=== PATIENT | male | born 1960 | race Caucasian/White ===

== ENCOUNTER 2016-08-11 20:43 | Emergency (ER) | payer OTHER ==
[2016-08-11] MEDS ORDERED: NS 0.9% 1000 ML* 1,000 ML IV ONE (22:47)
[2016-08-11 22:55] LABS: Urine Bilirubin Negative (Negative); Urine Glucose 1+(50 mg/dL) (Negative); Urine Nitrite Negative (Negative)
[2016-08-11 23:11] LABS: Hematocrit 42 % (42-52); Mean Corpuscular HGB Conc 33 g/dl (31-36); Mean Corpuscular Hemoglobin 30 pg (27-31); Mean Corpuscular Volume 89 fL (80-94); Mean Platelet Volume 9 um3 (7.4-10.4); Red Blood Count 4.74 10^6/ul (4.0-5.4); Red Cell Distribution Width 12 % (10.5-15); White Blood Count 20.4 10^3/ul (3.5-10.8)
[2016-08-11 23:27] LABS: Albumin 3.9 g/dL (3.2-5.2); BUN/Creatinine Ratio 22.7 (8-20); Calcium 9.2 mg/dL (8.6-10.3); EGFR African American 138.1 (>60); EGFR Non-African American 107.3 (>60); Globulin 3.3 g/dL (2-4); Potassium 3.9 mmol/L (3.5-5.0); Total Bilirubin 0.5 mg/dL (0.2-1.0); Total Protein 7.2 g/dL (6.4-8.9)
[2016-08-11 23:29] LABS: Troponin I 0.02 ng/mL (<0.04)
[2016-08-12] MEDS ORDERED: Iodixanol* (CONTRAST) 320 MG/ML 100 ML SDV IV ONE (00:58)
[2016-08-12] MEDS ORDERED: Levofloxacin 500 MG IVPREMIX(* 500 MG/100 ML BAG IVPB ONE (02:09)
[2016-08-12] MEDS ORDERED: metroNIDAZOLE IV 500 MG/100ML* 500 MG/100 ML BAG IVPB ONE (02:10)
--- NOTE | 2016-08-12 04:33 | ED ---
Marleen Mitchell Rebecca, scribed for Allegra Henryuel on 08/11/16 at 2239 . Abdominal Pain/Male - HPI Summary HPI Summary: Pt is a 56 y/o M who presents to ED c/o abd pain. Pain began suddenly 2 days ago and has been constant since onset. Pain is discrete to the suprapubic region and has been constant since onset. Pain is currently ranked 6/10 and characterized as sharp. Sx aggravated and alleviated by nothing. Additionally c/ o constipatoin, dysuria, increased urinary frequency and mild CP. Denies hematuria, blood in stool, N/V/D. No PMHx CAD. SHx former smoker (quit 15 years ago). - History of Current Complaint Chief Complaint: EDAbdPain Stated Complaint: ABD PAIN Time Seen by Provider: 08/11/16 22:33 Hx Obtained From: Patient Onset/Duration: Sudden Onset, Lasting Days - 2 days, Still Present Timing: Constant Severity Initially: Moderate Severity Currently: Moderate Pain Intensity: 6 Pain Scale Used: 0-10 Numeric Location: Suprapubic Radiates: No Character: Sharp Aggravating Factor(s): Nothing Alleviating Factor(s): Nothing Associated Signs And Symptoms: Positive: Chest Pain - mild, Constipation, Urinary Symptoms - dysuria, increased urinary frequency; Denies hematuria. Negative: Blood in Stool, Nausea, Vomiting, Diarrhea - Allergies/Home Medications Allergies/Adverse Reactions: Allergies Allergy/AdvReac Type Severity Reaction Status Date / Time [place] Blue FCF AdvReac WHOLE BODY Verified 01/28/15 06:39 [From Advil PM Caplets] DISCOMFORT CI Pigment Blue 63 AdvReac WHOLE BODY Verified 01/28/15 06:39 [From Advil PM Caplets] DISCOMFORT Diphenhydramine AdvReac WHOLE BODY Verified 01/28/15 06:39 [From Advil PM Caplets] DISCOMFORT Ibuprofen AdvReac WHOLE BODY Verified 01/28/15 06:39 [From Advil PM Caplets] DISCOMFORT Naproxen AdvReac GI Upset Verified 01/28/15 06:39 SOME FOOD ALLERGIES Allergy Unknown Uncoded 01/28/15 06:39 Reaction Details PMH/Surg Hx/FS Hx/Imm Hx Endocrine/Hematology History: Reports: Hx Diabetes Cardiovascular History: Reports: Hx Angina Denies: Hx Coronary Artery Disease, Hx Hypercholesterolemia, Hx Hypertension , Hx Myocardial Infarction, Hx Pacemaker/ICD, Hx Valvular Heart Disease Respiratory History: Reports: Hx Sleep Apnea - ?- HAS NOT BEEN DIAGNOSED WITH Denies: Hx Asthma, Hx Chronic Obstructive Pulmonary Disease (COPD) GI History: Reports: Hx Gastroesophageal Reflux Disease - ON OCCASION Comment Only: Hx Irritable Bowel - POSSIBLY-BOWEL PROBLEMS WITH EATING JUNK FOODS History: Denies: Hx Dialysis, Hx Renal Disease Musculoskeletal History: Reports: Hx Arthritis - KNEES, HANDS, ELBOWS Sensory History: Reports: Hx Contacts or Glasses - GLASSES Denies: Hx Hearing Aid Opthamlomology History: Reports: Hx Contacts or Glasses - GLASSES Neurological History: Reports: Hx Headaches - 2-3 TIMES PER YEAR Psychiatric History: Reports: Hx Anxiety - NO MEDICATION FOR, Hx Depression - NO MEDICATION FOR Denies: Hx Panic Disorder - Surgical History Surgery Procedure, Year, and Place: APPENDIX Hx Anesthesia Reactions: No Infectious Disease History: Denies: Traveled Outside the [place] in Last 30 Days - Social History Alcohol Use: Occasionally Substance Use Type: Reports: None Substance Use Comment - Amount & Last Used: HISTORY OF USE 20 YEARS YEARS AGO Smoking Status (MU): Former Smoker Type: Cigarettes Amount Used/How Often: 1 1/2 PPD Length of Time of Smoking/Using Tobacco: 20 Have You Smoked in the Last Year: No Review of Systems Positive: Chest Pain - mild Positive: Abdominal Pain. Negative: Vomiting, Diarrhea, Nausea Positive: dysuria, frequency - increased urinary frequency, other - constipation ; Denies blood in stool. Negative: hematuria All Other Systems Reviewed And Are Negative: Yes Physical Exam Triage Information Reviewed: Yes Vital Signs On Initial Exam: Initial Vitals Temp Pulse Resp BP Pulse Ox 97.8 F 104 20 150/89 95 08/11/16 20:47 08/11/16 20:47 08/11/16 20:47 08/11/16 20:47 08/11/16 20:47 Vital Signs Reviewed: Yes Appearance: Positive: Well-Appearing, No Pain Distress Skin: Positive: Warm, Skin Color Reflects Adequate Perfusion, Dry Eyes: Positive: EOMI, CAM ENT: Positive: Normal ENT inspection Neck: Positive: Supple, Nontender Respiratory/Lung Sounds: Positive: Clear to Auscultation, Breath Sounds Present Cardiovascular: Positive: RRR, Pulses are Symmetrical in both Upper and Lower Extremities Abdomen Description: Positive: Soft. Negative: Nontender - RLQ and LLQ tenderness Bowel Sounds: Positive: Present Musculoskeletal: Positive: Normal, Strength/ROM Intact Neurological: Positive: Normal, Sensory/Motor Intact, Alert, Oriented to Person Place, Time Diagnostics - Vital Signs Vital Signs Temp Pulse Resp BP Pulse Ox 08/11/16 22:02 97.9 F 97 22 161/86 99 08/11/16 20:47 97.8 F 104 20 150/89 95 - Laboratory Result Diagrams: 08/11/16 22:50 08/11/16 22:50 Lab Statement: Any lab studies that have been ordered have been reviewed, and results considered in the medical decision making process. - Radiology CXR Xray Interpretation: No Acute Changes Radiology Interpretation Completed By: ED Physician - CT CT Abd/Pel CT Interpretation: Positive (See Comments) - Positive for acute diverticulitis. There is sigmoid diverticulosis. There is wall thickening of the proximal sigmoid and perisigmoidal inflammation. No abscess. No free air. No free fluid. No bowel obstructoin. CT Interpretation Completed By: Radiologist - EKG 2256 Cardiac Rate: NL - 98 bpm EKG Rhythm: Sinus Rhythm EKG Interpretation: no acute changes Abdominal Pain Fem Course/Dx - Course Assessment/Plan: Pt came to the ED with abd pain. Labs, CXR and CT Abd/Pel were done. Revealed acute diverticulitis. Pt received IV Abx (Levaquin and Flagyl) in the ED. No abscess is present. There is no indication for admission at this time. Pt will be D/C to home with a Dx of acute diverticulitis and prescription for Abx. He will follow up with his PCP in 3 days. - Diagnoses Provider Diagnoses: Diverticulitis Discharge - Discharge Plan Condition: Stable Disposition: HOME Patient Education Materials: Diverticulitis (ED) Referrals: Guero Vazquez, BUCKLE SORTER [Primary Care Provider] - 3 Days The documentation as recorded by the Marleen armenta Rebecca accurately reflects the service I personally performed and the decisions made by Carl watson Emmanuel.
[2016-08-12 05:32] VITALS: BP 125/73
--- NOTE | 2016-08-12 08:42 | RAD ---
INDICATION: Chest tightness when eating COMPARISON: None TECHNIQUE: PA and lateral views of the chest were obtained. FINDINGS: The heart and mediastinum are normal in size and contour. The lungs are grossly clear. There is no evidence of large pleural effusion. Visualized bones are normal for the patient's age. There is no radiographic evidence of free air beneath the diaphragm IMPRESSION: No radiographic evidence of acute cardiopulmonary disease.
--- NOTE | 2016-08-12 12:31 | RAD ---
CLINICAL HISTORY: Abdominal pain. Relevant surgical history includes appendectomy. COMPARISON: None TECHNIQUE: Contrast enhanced CT examination of the abdomen and pelvis from the lung bases through the initial tuberosities. The patient received 141 mL Visipaque 320 intravenously prior to imaging. FINDINGS: VISUALIZED LUNG BASES: The visualized lung bases are grossly clear. There is no pleural effusion. ABDOMEN AND PELVIS: The liver, spleen, pancreas and adrenal glands are grossly normal in appearance. The gallbladder is normal. The kidneys are normal in appearance without focal mass, calcification or signs of hydronephrosis. Evaluation of the bowel is limited without oral contrast. The small and large bowel are not distended. The cecal appendix is not definitely visualized corresponding to the patient's reported surgical history. There are distal colonic diverticula. Beginning at the sigmoid colon (image 132 June 08, 1948) there is mild wall thickening and infiltration of the pericolonic fat consistent with diverticulitis. There is no evidence of gross perforation or drainable fluid collection. There are mildly dilated retroperitoneal and periaortic lymph nodes measuring up to 1.2 cm in short access diameter apices image 82). Scattered mesenteric lymph nodes are identified measuring up to 7 mm in short axis diameter (coronal image 55), but none exhibit pathologic enlargement. The pelvic viscera is normal in appearance. The mildly calcified abdominal aorta and iliac arteries are normal in course and diameter. Multilevel degenerative changes of the thoracic and lumbar spine include loss of intervertebral disc height, marginal osteophyte formation as well as vacuum disc phenomenon at L3/L4 and L2/L3.There are no sinister bone lesions. IMPRESSION: 1. CT findings are consistent with sigmoid diverticulitis without evidence of macro perforation or drainable fluid collection. 2. Mildly dilated retroperitoneal lymph nodes measuring up to 1.2 cm in short axis diameter of uncertain clinical significance. 3. Additional chronic, degenerative and iatrogenic findings described in the body of the report.
== END 2016-08-12 05:30 | disposition home or self-care (01) ==
LOC: ED 20:43
DX: K57.32 Diverticulitis of large intestine without perforation or abscess without bleeding (principal); K59.00 Constipation, unspecified; R30.0 Dysuria; R35.0 Frequency of micturition; E11.9 Type 2 diabetes mellitus without complications; I20.9 Angina pectoris, unspecified; K21.9 Gastro-esophageal reflux disease without esophagitis; Z87.891 Personal history of nicotine dependence
CPT/HCPCS: 36415; 71020; 74177; 80053; 81003; 83690; 84484; 85025; 85610; 85730; 93005; 96365; 96366; 96375; 99283; J1956; Q9967

== ENCOUNTER 2017-05-04 18:38 | Emergency (ER) | payer OTHER ==
[2017-05-04 19:10] VITALS: BP 142/97
--- NOTE | 2017-05-27 21:38 | UC ---
Omar Mitchell Stephanie, scribed for Carmelina Patiño MD on 05/04/17 at 2008 . Throat Pain/Nasal [place] HPI - HPI Summary HPI Summary: The pt is a 57 y/o M presenting with c/o nasal congestion and eye irritation that began on 04/30/17 and was at its worst last night. Symptoms include eye pain , eye drainage, cough, SOB, CP associated with cough, NOVAK and fever. His last A1C was 8.3. The pt reports he suspects symptoms came from his dirty c-pap machine that he has been using for less than 1 year. The pt states that his illness began with nasal congestion and then traveled to his eyes. The pt reports that he does not take the medications prescribed to him for diabetes. The pt reports history of previous infections from his c-pap machine. The pt reports recent stress due to upcoming possible homelessness. The pt reports receiving his influenza vaccine this season. - History of Current Complaint Chief Complaint: UCRespiratory Stated Complaint: CHEST CONGESTION, AND EYE IRRITATION Time Seen by Provider: 05/04/17 19:45 Hx Obtained From: Patient Onset/Duration: Gradual Onset, Lasting Days - 4, Still Present Severity: Mild Pain Intensity: 4 Pain Scale Used: 0-10 Numeric Cough: Nonproductive Associated Signs & Symptoms: Positive: Fever, Other - eye pain, SOB, CP associated with cough, NOVAK - Allergies/Home Medications Allergies/Adverse Reactions: Allergies Allergy/AdvReac Type Severity Reaction Status Date / Time [place] Blue FCF AdvReac WHOLE BODY Verified 05/04/17 19:10 [From Advil PM Caplets] DISCOMFORT MS CI Pigment Blue 63 AdvReac WHOLE BODY Verified 05/04/17 19:10 [From Advil PM Caplets] DISCOMFORT MS Diphenhydramine AdvReac WHOLE BODY Verified 05/04/17 19:10 [From Advil PM Caplets] DISCOMFORT MS Ibuprofen AdvReac WHOLE BODY Verified 05/04/17 19:10 [From Advil PM Caplets] DISCOMFORT MS Naproxen [Naproxen] AdvReac GI Upset Verified 05/04/17 19:10 SOME FOOD ALLERGIES Allergy Unknown Uncoded 01/28/15 06:39 Reaction Details Home Medications: Home Medications Lisinopril TAB* [Prinivil TAB 5 MG*] 05/04/17 [History] PMH/Surg Hx/FS Hx/Imm Hx Endocrine History: Diabetes - does not take the medications prescribed to him Cardiovascular History: Hypertension Psychological History: Anxiety, Depression, Other - The pt discusses his addiction to food but denies SI. The pt denies past attempts at self-harm. 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 - Surgical History Surgical History: Yes Surgery Procedure, Year, and Place: APPENDIX - Family History Known Family History: Positive: Other - cancer Negative: Diabetes - Social History Occupation: Works From/At Home Lives: Alone Alcohol Use: Occasionally Substance Use Type: None Substance Use Comment - Amount & Last Used: HISTORY OF USE 20 YEARS YEARS AGO Smoking Status (MU): Former Smoker Type: Cigarettes Amount Used/How Often: 1 1/2 PPD Length of Time of Smoking/Using Tobacco: 20 Have You Smoked in the Last Year: No When Did the Patient Quit Smoking/Using Tobacco: 02/06/01 Review of Systems Constitutional: Fever, Fatigue Skin: Negative Eyes: Drainage, Other - eye pain ENT: Negative Respiratory: Shortness Of Breath, Cough Cardiovascular: Chest Pain Gastrointestinal: Negative Genitourinary: Negative Motor: Negative Neurovascular: Negative Musculoskeletal: Negative Neurological: Headache Psychological: Anxious - Significant social stress in that his current landlord will be selling the house where he is now living. He has support of [employer] and has been reaching out on line. He is not suicidal or in fear of hurting himself. All Other Systems Reviewed And Are Negative: Yes Physical Exam Triage Information Reviewed: Yes Completion Of Physical Exam Limited Due To: Other - mildly anxious, very talkitive. Appearance: Ill-Appearing - looks mildly unwell, congested., Obese Vital Signs: Initial Vital Signs Temp 98.1 F 05/04/17 18:59 Pulse 81 05/04/17 18:59 Resp 20 05/04/17 18:59 BP 142/97 05/04/17 18:59 Pulse Ox 98 05/04/17 18:59 Vital Signs Reviewed: Yes Eyes: Positive: Conjunctiva Inflamed - bilateral injection and eye drainage. ENT: Positive: Pharynx normal, TMs normal Neck exam: Normal Neck: Positive: Supple, No Lymphadenopathy Respiratory: Positive: Decreased breath sounds - to both lung bases., Rhonchi - both lung hammond. Cardiovascular: Positive: RRR, No Murmur Musculoskeletal Exam: Normal Neurological Exam: Normal Neurological: Positive: Alert Psychological Exam: Other - anxious Skin Exam: Normal Throat Pain/Nasal Course/Dx - Course Course Of Treatment: The pt is a 57 y/o M presenting with nasal congestion and eye irritation that began on 04/30/17 and was at its worst last night. - Differential Dx/Diagnosis Differential Diagnosis/HQI/PQRI: Pharyngitis, Other - pneumonia Provider Diagnoses: bacterial conjunctivitis; bronchitis. Uncontrolled diabetes. Discharge - Discharge Plan Condition: Stable Disposition: HOME Prescriptions: Azithromyxin CHELE (NF) [Z-Chele (Zithromax) 250 mg tabs #6] 2 tab PO .TODAY, THEN 1 DAILY #6 tab Polymyx/Trimethoprim OPTH* [Polytrim OPHTH*] 1 drop BOTH EYES Q3H #1 btl Patient Education Materials: Acute Bronchitis (ED), Conjunctivitis (ED) Referrals: Guero Vazquez [employer] [Primary Care Provider] - Additional Instructions: Use drops to treat the conjunctivitis. Cleanse the discharge from your eyes with a clean facecloth rinsed in warm water, then apply drops to both eyes as directed. Use drops every 3 hours while awake for 5 days. Take azithromycin as directed to treat your chest infection. Schedule a follow up with Dr. Vazquez for next week to address your blood pressure and diabetes control, as well as to review eligibility for disability. If you have increasing shortness of breath, please return for an evaluation. The documentation as recorded by the Omar armenta Stephanie accurately reflects the service I personally performed and the decisions made by me, Carmelina Patiño MD.
== END 2017-05-04 20:25 | disposition home or self-care (01) ==
LOC: UCEAST 18:38
DX: H10.023 Other mucopurulent conjunctivitis, bilateral (principal); J40 Bronchitis, not specified as acute or chronic; E11.65 Type 2 diabetes mellitus with hyperglycemia; I10 Essential (primary) hypertension; F41.9 Anxiety disorder, unspecified; F32.9 Major depressive disorder, single episode, unspecified; F17.210 Nicotine dependence, cigarettes, uncomplicated; Z88.6 Allergy status to analgesic agent
CPT/HCPCS: 99212; G0463